=== PATIENT | male | born 1965 | race Caucasian/White ===

== ENCOUNTER 2017-05-18 15:43 | Outpatient (CLI) | payer OTHER ==
--- NOTE | 2017-05-18 19:34 | MRI ---
MRI LUMBAR SPINE WITHOUT CONTRAST: 05/18/17 Multiplanar and multisequential imaging lumbar spine obtained. HISTORY: Intervertebral disc disorder. Radiculopathy. Low back pain. FINDINGS: Lumbar vertebrae maintain normal height and alignment. There is mild loss of disc height at L5-S1. Th e other disc spaces are preserved. Vertebral bodies maintain normal signal. At L1-2, no disc bulge or protrusion. No significant abnormality. At L2-3, mild disc bulge flattens the anterior thecal sac. Mild facet arthrosis. No significant centr al canal or foraminal stenosis. At L3-4, broad based disc bulge is slightly more prominent. This flattens the thecal sac and mildly i ndents the anterior thecal sac to the right of midline. Mild facet arthrosis and hypertrophy. Epidura l fat in the posterior canal. These changes result in mild central canal stenosis. At L4-5, minimal disc bulge. Mild to moderate facet hypertrophy. No significant central canal or fora kacie stenosis. At L5-S1, there is a broad based disc protrusion which is more prominent centrally. This abuts the an terior thecal sac and appears to contact both traversing S1 nerve roots. Facet hypertrophy. Mild cent ral canal stenosis. IMPRESSION: 1. Broad based disc protrusion which is more pronounced centrally at L5-S1. 2. Disc bulges are seen at L2-3 and L3-4 as described. POS: CATHRYN
== END 2017-05-18 15:44 | disposition home or self-care (01) ==
LOC: TBSIIMAG 15:43
PROVIDERS: ATTEND Anesthesiology Pain Medicine
DX: M51.16 Intervertebral disc disorders with radiculopathy, lumbar region (principal)
CPT/HCPCS: 72148

== ENCOUNTER 2018-03-03 12:40 | Observation (INO) | payer OTHER ==
[2018-03-03 13:18] LABS: #Basophils 0.1 thou/uL (0.0-0.2); #Eosinphils 0.1 thou/uL (0.0-0.7); #Lymphocytes 3.2 thou/uL (1.20-3.40); #Monocytes 0.6 thou/uL (0.11-0.59); #Neutrophils 5.2 thou/uL (1.40-6.50); %Eosinophils 1.3 % (0.0-10.0); %Lymphocytes 34.5 % (21.0-51.0); %Neutrophils 56.2 % (42.0-75.0); Hemoglobin 16.7 g/dL (14.0-18.0); Mean Corpuscular HGB CONC 34.2 g/dL (32.0-36.0); Mean Corpuscular Volume 99.5 fL (78.0-98.0); Mean Platelet Volume 7.2 fL (7.4-10.4); Platelet Count 236 thou/uL (130-400); RBC Distribution Width 11.9 % (11.5-14.5); Red Blood Cell (RBC) Count 4.89 mill/uL (4.70-6.10); White Blood Cell (WBC) Count 9.2 thou/uL (4.8-10.8)
[2018-03-03 13:36] LABS: ALT (SGPT) 111 U/L (8-55); AST (SGOT) 100 U/L (5-34); Albumin 4.3 g/dL (3.5-5.0); Alkaline Phosphatase 81 U/L (40-150); Anion Gap 18 mmol/L (10-20); BUN (Urea Nitrogen) 19 mg/dL (8.4-25.7); Bilirubin, Total 0.4 mg/dL (0.2-1.2); CK (CPK) 442 U/L (30-200); Calc. Creatinine Clearance 0 mL/min (70-130); Carbon Dioxide 20 mmol/L (22-29); Chloride 101 mmol/L (98-107); Estimated GFR-MDRD 66; Globulin 3.5 g/dL (2.4-3.5); Glucose 249 mg/dL (70-105); Lipase 60 U/L (8-78); Potassium 4.1 mmol/L (3.5-5.1); Protein, Total 7.8 g/dL (6.0-8.3); Sodium 135 mmol/L (136-145)
[2018-03-03 13:38] LABS: CKMB 5.4 ng/mL (0-6.6); Troponin I Less than 0.010 ng/mL (< 0.028)
--- NOTE | 2018-03-03 13:39 | RAD ---
PORTABLE CHEST 1 VIEW: DATE: 03/05/18. TIME: 1:13 p.m. HISTORY: Chest pain. FINDINGS: Comparison is made with the exam of 09/25/13. The heart size is normal. No focal areas of consolidation, pneumothoraces, or pleural effusions are seen. IMPRESSION: No radiographic evidence of acute cardiopulmonary process. POS: H
--- NOTE | 2018-03-03 15:30 | PDOC.FPRHP ---
- History of Present Illness Chief Complaint: Chest Pain History of Present Illness: 53 yo caucassion male w/ pmh of HTN and diabetes comes in with c/c of chest pain. Pt reports was out mowing his lawn when he got a pain in his chest. Not really able to describe it. Says it felt like his heart stopped beating. Says he went inside and tried to sit down. Didn't get better. Says he tried to walk it out and still didn't improve. At this time he continued to have pain so came to the ER. Reports once got here and layed down chest pain has resolved. Pt denied any SOB. Denied pain radiating anywhere. Pain denied dizziness, headache , LOC or lightheadness. Pt denied any abdominal pain. Denied any n/v/d/c. Denied any recent fever chills. Pt reports having some allergy sx's [place]. Pt reports having GERD but reports controlled with medication. Says it didn't feel like GERD. No other concerns or complaints at this time. ED Course: given ASA. Did not give nitro due to cialis use - Allergies/Adverse Reactions Allergies Allergy/AdvReac Type Severity Reaction Status Date / Time No Known Allergies Allergy Verified 03/31/13 11:11 - Home Medications Medication Instructions Recorded Confirmed Type Cyclobenzaprine [Flexeril] 10 mg PO TID PRN 03/31/13 03/31/13 History Lisinopril [Prinivil] 10 mg PO DAILY 03/31/13 03/31/13 History Simvastatin [Zocor] 20 mg PO QPM 03/31/13 03/31/13 History Zolpidem Tartrate [Ambien] 10 mg PO HS 03/31/13 03/31/13 History Comments: Above pt is no longer taking Flexeril. Zoldipem is the same as above. Pt no longer taking lisinopril above. Pt will need med Recd' Below is updated list: Prilosec 40 mg daily Metformin 1000 mg BID Simvastatin 40 mg daily, this is increased from med list above. Lisinopril-HCTZ 20-25 mg daily Zoldipem 10mg - History PMHx: HTN, pre-diabetes, Sleeping disorder, HLD PSHx: Decompression of Clavicle Fx FHx: Insignificant Social: No Tobacco use, No alcohol use, No illicit drug use - Review of Systems General: denies: fever/chills, weight/appetite/sleep changes, night sweats, fatigue Eyes: denies: eye pain ENT: denies: nasal congestion, rhinorrhea Respiratory: denies: cough, congestion, shortness of breath Cardiovascular: reports: chest pain. denies: edema, paroxysmal nocturnal dyspnea, orthopnea Gastrointestinal: denies: nausea, vomiting, diarrhea, constipation Genitourinary: denies: incontinence Skin: denies: rashes Musculoskeletal: denies: pain, tenderness, stiffness, swelling Neurological: denies: numbness, syncope, weakness Psychological: denies: anxiety, depression - Vital signs BP: [127/73] HR: [95] RR: [18] Tmax: [97.8] Pox: [92]% on [RA] Wt: [136 kg] - Physical Exam Constitutional: NAD, awake, alert and oriented, well developed HEENT: normocephalic and atraumatic, PERRLA, normal nasal mucosa, MMM, oropharynx clear Neck: supple, trachea midline, no LAD, no JVD Chest: no-tender to palpation, no lesions Heart: RRR, normal S1/S2, no murmurs/rubs/gallops, pulses present Lungs: CTAB, no respiratory distress, good air movement, no wheezing Abdomen: soft, non-tender, bowel sounds present, no masses/distention -Abdomen: Strange negative Musculoskeletal: normal structure, ROM grossly normal Neurological: no focal deficit, normal sensation Skin: no rash/lesions, good turgor, capillary refill <2 seconds Heme/Lymphatic: no unusual bruising or bleeding Psychiatric: normal mood and affect, good judgment and insight, intact recent and remote memory FMR H&P: Results - Labs Result Diagrams: 03/03/18 12:58 03/03/18 12:58 Lab results: WBC 9.2 thou/uL (4.8-10.8) 03/03/18 12:58 Hgb 16.7 g/dL (14.0-18.0) 03/03/18 12:58 Hct 48.7 % (42.0-52.0) 03/03/18 12:58 MCV 99.5 fL (78.0-98.0) H 03/03/18 12:58 Plt Count 236 thou/uL (130-400) 03/03/18 12:58 Neutrophils % 56.2 % (42.0-75.0) 03/03/18 12:58 Sodium 135 mmol/L (136-145) L 03/03/18 12:58 Potassium 4.1 mmol/L (3.5-5.1) 03/03/18 12:58 Chloride 101 mmol/L (98-107) 03/03/18 12:58 Carbon Dioxide 20 mmol/L (22-29) L 03/03/18 12:58 BUN 19 mg/dL (8.4-25.7) 03/03/18 12:58 Creatinine 1.16 mg/dL (0.6-1.3) 03/03/18 12:58 Glucose 249 mg/dL (70-105) H 03/03/18 12:58 Calcium 10.0 mg/dL (7.8-10.44) 03/03/18 12:58 Total Bilirubin 0.4 mg/dL (0.2-1.2) 03/03/18 12:58 AST 100 U/L (5-34) H 03/03/18 12:58 ALT 111 U/L (8-55) H 03/03/18 12:58 Alkaline Phosphatase 81 U/L (40-150) 03/03/18 12:58 Creatine Kinase 442 U/L (30-200) H 03/03/18 12:58 CK-MB (CK-2) 5.4 ng/mL (0-6.6) 03/03/18 12:58 Serum Total Protein 7.8 g/dL (6.0-8.3) 03/03/18 12:58 Albumin 4.3 g/dL (3.5-5.0) 03/03/18 12:58 Lipase 60 U/L (8-78) 03/03/18 12:58 - EKG Interpretation EKG: Sinus tachy. No ST elevation. No other abnormality noted - Radiology Interpretation Chest x-ray Status: image reviewed by me (No radiographic evidence of acute cardiopulm process) FMR H&P: A/P - Problem List (1) Chest pain Current Visit: Yes Status: Acute Priority: High Code(s): R07.9 - CHEST PAIN, UNSPECIFIED Qualifiers: Chest pain type: unspecified Qualified Code(s): R07.9 - Chest pain, unspecified (2) Diabetes Current Visit: Yes Status: Acute Priority: High Code(s): E11.9 - TYPE 2 DIABETES MELLITUS WITHOUT COMPLICATIONS Qualifiers: Diabetes mellitus type: type 2 Diabetes mellitus complication status: without complication (3) Hypertension Current Visit: Yes Status: Acute Code(s): I10 - ESSENTIAL (PRIMARY) HYPERTENSION (4) HLD (hyperlipidemia) Current Visit: Yes Status: Acute Code(s): E78.5 - HYPERLIPIDEMIA, UNSPECIFIED (5) GERD (gastroesophageal reflux disease) Current Visit: Yes Status: Acute Code(s): K21.9 - GASTRO-ESOPHAGEAL REFLUX DISEASE WITHOUT ESOPHAGITIS (6) Transaminitis Current Visit: Yes Status: Acute Code(s): R74.0 - NONSPEC ELEV OF LEVELS OF TRANSAMNS & LACTIC ACID DEHYDRGNSE - Plan Typical Chest Pain -initial trop .01. EKG showed sinus tach with rate from 95-105. D-dimer normal .04. Did not complain of SOB. No concern for PE at this time. Will trend x2 every 3 hours. Will put on continuos Tele observation. -Will plan on Stress test in Morning. - ASA daily -Pt recenlty took cialis. Will hold off on nitro for now. -Tylenol PRN -TSH pending. DMII -Pt random sugar 254. Pt was taking metformin 1000 mg BID but thought for pre- diabetes. Will check A1c. Pt now has diabetes. Will consult [employer] Power Install Technician for diet education. -CC diet -counseled on weight loss HTN -continue home meds. BP stable HLD -FLP pending -On statin, continue home med GERD -Continue home med. Also added famotidine to see if helps with pain as could be cause. Transaminitis -AST/ALT elevated to low 100. Pt obese. -Denies any RUQ pain and strange sign neg. -Likely related to fatty liver disease. Will trend CMP tmrw. No further workup needed at this time. FMR H&P: Upper Level - Plan Date/Time: 03/03/18 1524 I, [], have evaluated this patient and agree with findings/plan as outlined by manager of international resident. Pertinent changes/additions are listed here. Attending Addendum - Attending Addendum Date/Time: 03/03/18 2149 I personally evaluated the patient and discussed the management with Dr. Stahl. I agree with the History, Examination, Assessment and Plan documented above with any addition or exceptions noted below.
[2018-03-03 17:15] LABS: Troponin I Less than 0.010 ng/mL (< 0.028)
[2018-03-03] MEDS ORDERED: Ondansetron ODT 4 MG TAB SL PRN (18:02)
[2018-03-03] MEDS ORDERED: Acetaminophen 325 MG TAB PO PRN ×2 (18:02→18:11)
[2018-03-03] MEDS ORDERED: Ondansetron HCl/PF 4 MG/2 ML Vial IVP PRN (18:02)
[2018-03-03 18:14] VITALS: BMI 45.5
[2018-03-03] MEDS ORDERED: Enoxaparin Sodium 40 MG/0.4 ML SYRINGE SC SCH (18:15)
[2018-03-03] MEDS ORDERED: metFORMIN 500 MG TAB PO SCH (18:30)
[2018-03-03 18:46] LABS: Hemoglobin A1c 8.8 % (4.0-6.0)
[2018-03-03] MEDS: Sodium Chloride 0.9% 1,000 ML IV SCH (18:54)
[2018-03-03 19:00] LABS: Cholesterol 183 mg/dl (< 200 Desired); HDL Cholesterol 26 mg/dL (>60 Neg Risk); Triglycerides 657 mg/dL (Less than 150)
[2018-03-03 20:11] LABS: Troponin I Less than 0.010 ng/mL (< 0.028)
[2018-03-03] MEDS ORDERED: Zolpidem Tartrate 5 MG TAB PO SCH (21:00)
[2018-03-03] MEDS ORDERED: Simvastatin 40 MG TAB PO SCH (21:00)
[2018-03-03] MEDS: Famotidine 20 MG TAB PO SCH (21:43)
[2018-03-04] MEDS: Sodium Chloride 0.9% 1,000 ML IV SCH (03:32)
[2018-03-04 04:23] LABS: #Basophils 0.1 thou/uL (0.0-0.2); #Eosinphils 0.2 thou/uL (0.0-0.7); #Monocytes 0.6 thou/uL (0.11-0.59); #Neutrophils 3.3 thou/uL (1.40-6.50); %Basophils 1.1 % (0.0-1.0); %Eosinophils 2.4 % (0.0-10.0); %Lymphocytes 42.6 % (21.0-51.0); %Neutrophils 45.9 % (42.0-75.0); Hemoglobin 15.9 g/dL (14.0-18.0); Mean Corpuscular HGB CONC 34.2 g/dL (32.0-36.0); Mean Corpuscular Hemoglobin 34.4 pg (27.0-31.0); Mean Platelet Volume 7.3 fL (7.4-10.4); Platelet Count 222 thou/uL (130-400); RBC Distribution Width 11.9 % (11.5-14.5); Red Blood Cell (RBC) Count 4.63 mill/uL (4.70-6.10); White Blood Cell (WBC) Count 7.1 thou/uL (4.8-10.8)
[2018-03-04 04:44] LABS: ALT (SGPT) 105 U/L (8-55); AST (SGOT) 77 U/L (5-34); Albumin 3.8 g/dL (3.5-5.0); Alkaline Phosphatase 70 U/L (40-150); Anion Gap 18 mmol/L (10-20); BUN (Urea Nitrogen) 16 mg/dL (8.4-25.7); Bilirubin, Total 0.3 mg/dL (0.2-1.2); Calc. Creatinine Clearance 224 mL/min (70-130); Calcium 8.7 mg/dL (7.8-10.44); Carbon Dioxide 19 mmol/L (22-29); Chloride 101 mmol/L (98-107); Estimated GFR-MDRD Greater than 90; Globulin 2.8 g/dL (2.4-3.5); Glucose 264 mg/dL (70-105); Protein, Total 6.6 g/dL (6.0-8.3); Sodium 134 mmol/L (136-145)
[2018-03-04] MEDS ORDERED: metFORMIN 500 MG TAB PO SCH (08:00)
[2018-03-04] MEDS ORDERED: Enoxaparin Sodium 40 MG/0.4 ML SYRINGE SC SCH (09:00)
[2018-03-04] MEDS: Famotidine 20 MG TAB PO SCH (09:01)
--- NOTE | 2018-03-04 09:06 | PDOC.FM ---
- Subjective Subjective: Pt resting in bed. Snoring loudly. Suspected underlying sleep apnea. Pt denies any events overnight. Denies any more chest pain. denies an SOB. Denies any fever or chills. Denies any leg swelling. Denies any n/v/d/c. No other concerns or questions at this time. - Objective MAR Reviewed: Yes Vital Signs & Weight: Vital Signs (12 hours) Temp Pulse Resp BP BP Pulse Ox 03/04/18 07:00 97.7 F 80 12 114/54 L 97 03/04/18 03:28 97.3 F L 88 14 142/67 H 94 L 03/03/18 23:14 97.9 F 89 18 92/56 L 94 L Weight Weight 144.787 kg I&O: 03/03/18 03/04/18 03/05/18 06:59 06:59 06:59 Intake Total 1325 Balance 1325 Result Diagrams: 03/04/18 04:09 03/04/18 04:09 EKG Reviewed by me: Yes Radiology Reviewed by me: Yes (cxr negative) <Boby Stahl - Last Filed: 03/04/18 09:03> - Objective Vital Signs & Weight: Vital Signs (12 hours) Temp Pulse Resp BP Pulse Ox 03/04/18 11:09 97.9 F 89 20 120/66 95 03/04/18 07:00 97.7 F 80 12 114/54 L 97 Weight Weight 144.787 kg I&O: 03/03/18 03/04/18 03/05/18 06:59 06:59 06:59 Intake Total 1325 Balance 1325 Result Diagrams: 03/04/18 04:09 03/04/18 04:09 <Taya Gurrola - Last Filed: 03/04/18 17:46> Phys Exam - Physical Examination Constitutional: NAD HEENT: PERRLA, moist MMs Neck: no nodes, supple, full ROM Respiratory: no wheezing, no rales, no rhonchi, clear to auscultation bilateral Cardiovascular: RRR, no significant murmur, no rub Gastrointestinal: soft, non-tender, no distention, positive bowel sounds Musculoskeletal: no edema, pulses present Neurological: non-focal, normal sensation, moves all 4 limbs Lymphatic: no nodes Psychiatric: normal affect, A&O x 3 Skin: no rash, normal turgor, cap refill <2 seconds <Boby Stahl - Last Filed: 03/04/18 09:03> Dx/Plan (1) Chest pain Code(s): R07.9 - CHEST PAIN, UNSPECIFIED Status: Acute Qualifiers: Chest pain type: unspecified Qualified Code(s): R07.9 - Chest pain, unspecified (2) Diabetes Code(s): E11.9 - TYPE 2 DIABETES MELLITUS WITHOUT COMPLICATIONS Status: Acute Qualifiers: Diabetes mellitus type: type 2 Diabetes mellitus complication status: without complication (3) Hypertension Code(s): I10 - ESSENTIAL (PRIMARY) HYPERTENSION Status: Acute (4) HLD (hyperlipidemia) Code(s): E78.5 - HYPERLIPIDEMIA, UNSPECIFIED Status: Acute (5) GERD (gastroesophageal reflux disease) Code(s): K21.9 - GASTRO-ESOPHAGEAL REFLUX DISEASE WITHOUT ESOPHAGITIS Status: Acute (6) Transaminitis Code(s): R74.0 - NONSPEC ELEV OF LEVELS OF TRANSAMNS & LACTIC ACID DEHYDRGNSE Status: Acute - Plan Plan: Typical Chest Pain -Trop negative x3. EKG showed sinus tach with rate from 95-105. D-dimer normal .04. Did not complain of SOB. No concern for PE at this time. Tachy has since resolved. -No episodes of CP overnight -Plan for excercise stress test with imaging today. - ASA daily -Pt recenlty took cialis. Will hold off on nitro for now. -Tylenol PRN -TSH normal DMII -Pt random sugar 254 upon admission. Pt was taking metformin 1000 mg BID but thought for pre-diabetes. Will check A1c. Pt now has diabetes. Will consult Child'S Nurse for diet education. -Bg elevated. Will contniue home metformin dose and likely recommend diet conrol. -CC diet -counseled on weight loss HTN -continue home meds. BP stable HLD -FLP shows elevated LDL and low HDL. Only on simvastatin. Likely with switch to high dose atorvastatin at this time GERD -Continue home med. Also added famotidine to see if helps with pain as could be cause. Transaminitis -AST/ALT elevated to low 100. Treded down today. Pt obese. -Denies any RUQ pain and franco sign neg. -Likely related to fatty liver disease. . <Boby Stahl - Last Filed: 03/04/18 09:03> Attending Addendum - Attending Addendum Date/Time: 03/04/18 1653 I personally evaluated the patient and discussed the management with Dr. Stahl I agree with the History, Examination, Assessment and Plan documented above with any addition or exceptions noted below- Patient without complaints. returned from stress test. Afebrile VSS. A/P: 1) Chest pain- stress test negative. Plan to d/c home. 2) DM- HgbA1c 8.8; will add additional medication to metformin. Diabetic education and dietary counselling today. F/U with PCP in 2 weeks. <Taya Gurrola - Last Filed: 03/04/18 17:46>
[2018-03-04 11:46] VITALS: BP 120/66; TEMP 97.9
--- NOTE | 2018-03-04 13:21 | NM ---
NUCLEAR MEDICINE CARDIAC PERFUSION EXAMINATION WITH EJECTION FRACTION: COMPARISON: None. HISTORY: Chest pain, diabetes, and hypertension. TECHNIQUE: A stress-only nuclear medicine cardiac perfusion examination was performed using 33 mCi of Technetium 99m sestamibi given at the peak of exercise on a treadmill using a Charanjit protocol. The patient achi eved 90% maximum-predicted heart rate. FINDINGS: Tomographic images without attenuation correction show no perfusion defects with stress. Gated images show normal wall motion with an ejection fraction of 67%. EDV is 115 mL. LHR is 0.3. IMPRESSION: No perfusion defect is seen with stress. POS: CATHRYN
--- NOTE | 2018-03-07 14:41 | DIS-2 ---
DATE OF ADMISSION: 03/03/2018 DATE OF DISCHARGE: 03/04/2018 CONSULTS: None. PROCEDURES: Did have a stress test nuclear medicine, which showed no perfusion defect is seen with ena osei and had a normal exercise stress test. IMAGES: Had a chest x-ray done on 03/03/2018, which showed no radiographic evidence of acute cardiop ulmonary process. DISCHARGE DIAGNOSES: Include, 1. Atypical chest pain. 2. Type 2 diabetes mellitus, newly diagnosed. 3. Hypertension. 4. Hyperlipidemia. 5. Gastroesophageal reflux disease. 6. Transaminitis likely secondary to fatty liver disease. DISCHARGE MEDICATIONS: Included atorvastatin calcium 80 mg p.o. daily, Victoza 0.6 mg subcutaneus in jection daily for one week and then increase to 1.2 mg subcutaneus injection daily. Also, we had him on lisinopril/hydrochlorothiazide 20/25 mg tablet daily, metformin 1000 mg p.o. b.i.d., Protonix 40 mg p.o. daily, Ambien 10 mg p.o. at bedtime. DISCONTINUE MEDICATIONS: Included simvastatin 40 mg. HISTORY OF PRESENT ILLNESS AND HOSPITAL COURSE: This is a 53-year-old male that came in wh en he was mowing his lawn and then started experiencing chest pain did not go away with rest, tried w alking it off and came in due to the pain. When he got here, was given some aspirin and lying down s eemed to make the pain better nothing was seen on EKG. His CBC was benign. His heart rate was racin g in the 100s to 110s, but they did get a D-dimer negative for 0.40. He had no complaints of leg swe lling, no redness noted. When he came in, he was found to have a random glucose of 249. Patient had said that he was a prediabetic at that point, but had not been followed for diabetes. Check the hem oglobin A1c was found to be of 8.8. Other pertinent labs, he did have a little transaminitis. AST, ALT was 100 and 111 respectively. He did have a weight was 144 kilograms likely due to fatty liver d isease. We checked lipid panel, his triglycerides were 657, cholesterol 183, LDL was too numerous to count due to the high triglycerides. His HDL was 26. TSH is normal at 0.8 and we would trend his t roponins over the course of the day, it would be 0.01 x3 respectively. At this time, we will continu e patient's medications. We had him get a stress test, which was negative as above as talking with familia albert, pain was likely related to stress or some kind of heart murmur or could be related to his hig h blood sugar, but at this time we more started treating him as a newly diagnosed diabetic. We consu lted dietitian to come talk with him about diabetic diet. We had him educated on diabetes. At this time, his sugars would remain elevated. If sugar the next day would be 264 again nonfasting with a h emoglobin 8.8 with that at this time to add on a secondary medication. After talking with him, we ag gloria on Victoza around with his metformin b.i.d. and advised him that he needed to follow up closely with his PCP for further diabetes management at this time without the chest pain was likely cardiac i n nature and sent home. DISPOSITION: Stable. DISCHARGE LOCATION: Home. ACTIVITY: As tolerated. DIET: Consistent carb diet, diabetic diet. FOLLOWUP: He will need to follow up with his primary care physician within the next week.
--- NOTE | 2018-03-11 09:28 | STRESS ---
Acquisition Time: 2018-03-04 09:38:20 Total Exercise Time: 00:08:00 Test Indications: CHEST PAIN Medications: Protocol: MAKAYLA Max HR: 153 BPM 90% of Pred: 169 BPM Max BP: 128/082 mmHG Max Work Load: 10.1 METS THE PATIENT EXERCISED FOR 8:00 ON A MAKAYLA PROTOCOL. PEAK HEART RATE= 153 BPM AND TARGET HEART RATE= 144 BPM. HE DID NOT DEVELOP CHEST PAIN. THERE WAS NO SIGNIFICANT ST DEPRESSION. NORMAL EXERCISE TREADMILL TEST. AWAIT NUCLEAR IMAGES FOR DEFINITIVE DIAGNOSIS. Confirmed by MELANIE MCPHERSON ([id number]), news videotape editor LAINE DUMONT ([id number]) on 03/11/2018 9:28:21 AM Referred By: MD Tahir MCCALL Confirmed By:MELANIE MCPHERSON
== END 2018-03-04 13:29 | disposition home or self-care (01) ==
LOC: ERS 12:40 → 2SW 18:01
PROVIDERS: ADMIT Student in an Organized Health Care Education/Training Program; ATTEND Student in an Organized Health Care Education/Training Program
DX: R07.89 Other chest pain (principal); E11.9 Type 2 diabetes mellitus without complications; I10 Essential (primary) hypertension; E78.5 Hyperlipidemia, unspecified; K21.9 Gastro-esophageal reflux disease without esophagitis; R74.0 Nonspecific elevation of levels of transaminase and lactic acid dehydrogenase [LDH]; Z79.899 Other long term (current) drug therapy
CPT/HCPCS: 36415; 71045; 78452; 80053; 80061; 82553; 83036; 83690; 84443; 84484; 85025; 85379; 93005; 93017; 94760; 96360; 96361; 96372; A9500; G0378; J1650

== ENCOUNTER 2020-02-29 07:45 | Outpatient (CLI) | payer BC ==
--- NOTE | 2020-02-29 08:51 | MRI ---
MRI lumbar spine noncontrast: HISTORY: Intervertebral disc disorder with radiculopathy COMPARISON: 05/18/2017 FINDINGS: Appropriate T1 marrow signal intensity of the lumbar vertebra. Lumbar spine vertebral body height is maintained. No fracture. No significant STIR hyperintensity to suggest ligamentous injury or vertebral body edema. Appropriate signal intensity in the visualized paraspinal muscles and solid organs. Conus medullaris terminates at the inferior aspect of T12. T12-L1:Adequate disc hydration. No posterior disc abnormality. No significant central canal stenosis or significant neural foraminal narrowing. L1-L2:Adequate disc hydration. No posterior disc abnormality. No significant central canal stenosis o r significant neural foraminal narrowing. L2-L3:Minimal disc desiccation without significant loss of disc space height. Broad-based disc bulge abuts the thecal sac. Minimal central canal stenosis. Patent bilateral neural foramina. L3-L4:Minimal disc desiccation without significant loss of disc space height. Broad-based disc bulge with a small right subarticular disc herniation. Mild mass effect without obscuration of the traversing right L4 nerve root. No significant stenosis of the thecal sac. Mild right foraminal narro wing due to disc material. Patent left neural foramen. L4-L5:Minimal disc desiccation without significant loss of disc space height. Broad-based disc bulge minimally contacts the ventral thecal sac. No significant central canal stenosis. There is moderate bilateral facet hypertrophy with a small amount fluid in the right facet joint. Right neural foramen is patent. Mild left neural foraminal narrowing. L5-S1:Disc desiccation with mild loss of disc space height. Central disc herniation abuts the thecal sac. No significant central canal stenosis. Disc material encroaches upon bilateral subarticular zones. Partial obscuration of bilateral traversing S1 nerve roots. Slight increased mass effect upon the traversing left S1 nerve root.. There is stable moderate bilateral facet hypertrophy with fluid in both facet joints. Stable mild to moderate right and left neural foraminal narrowing. IMPRESSION: 1. Essentially stable degenerative changes throughout the lumbar spine. 2. Stable narrowing of the right subarticular zone at L3-L4, without significant obscuration of the t raversing right L4 nerve root. 3. Stable moderate bilateral facet hypertrophy at L4-L5 and L5-S1. 4. Stable disc herniation at L5-S1 with mass effect upon bilateral traversing S1 nerve roots. Increas ed stenosis of the left subarticular zone with partial obscuration of the traversing left S1 nerve root. Transcribed Date/Time: 02/29/2020 9:33 AM
== END 2020-02-29 07:46 | disposition home or self-care (01) ==
LOC: TBSIIMAG 07:45
PROVIDERS: ATTEND Anesthesiology Pain Medicine
DX: M51.16 Intervertebral disc disorders with radiculopathy, lumbar region (principal); M47.26 Other spondylosis with radiculopathy, lumbar region; M48.061 Spinal stenosis, lumbar region without neurogenic claudication; M51.17 Intervertebral disc disorders with radiculopathy, lumbosacral region
CPT/HCPCS: 72148